=== PATIENT | male | born 1995 | race Hispanic/Latino ===

== ENCOUNTER 2022-11-12 13:34 | Emergency (ER) | payer SELFPAY ==
[2022-11-12] VITALS (8 sets, daily range): BP systolic 127–147; BP diastolic 80–106; PULSE 82–102; RESP 13–20; TEMP 37.2; O2SAT 97–100
--- NOTE | ~2022-11-12 | XR_ITS ---
EXAMINATION: XR chest 2V DATE: 11/12/2022 14:47 INDICATION: Shortness of breath. Lightheadedness. TECHNIQUE: frontal and lateral views of the chest were obtained. COMPARISON: None FINDINGS: Mild infrahilar opacities in the bilateral lower lobes. No pleural effusion or pneumothorax. Heart si ze is normal. Visualized bones and soft tissues are unremarkable. IMPRESSION: 1. Infrahilar opacities in the bilateral lower lobes which could represent atelectasis, pneumonia or mild pulmonary edema. Reviewed, dictated and finalized at location A. IMPRESSION: 1. Infrahilar opacities in the bilateral lower lobes which could represent atel ectasis, pneumonia or mild pulmonary edema.
[2022-11-12] MEDS: SODIUM CHLORIDE 0.9% IV 1,000 ML 999 ML IV CONT (13:53)
--- NOTE | 2022-11-12 14:01 | ECG_ITS ---
Measurements Intervals [place] Rate: 94 P: 62 FL: 149 QRS: 71 QRSD: 86 T: 33 QT: 326 QTc: 408 Interpretive Statements SINUS RHYTHM WITH SINUS ARRHYTHMIA NO PREVIOUS ECG AVAILABLE FOR COMPARISON Electronically Signed On 11-13-2022 8:47:34 CDT by Lizzie Galicia M.D.
--- NOTE | 2022-11-12 14:01 | ED.SOB ---
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 Reports he has been working outside all day today. Reports he starting to feel short of breath and lightheaded. Presents for hydration with IV fluids. Denies chest pain or vomiting. Related Data Allergies Allergy/AdvReac Type Severity Reaction Status Date / Time No Known Allergies Allergy Verified 11/12/22 13:46 Review of Systems Review of Systems: CONSTITUTIONAL: Denies fever EYES: Denies visual changes CARDIOVASCULAR: Denies chest pain, or edema. RESPIRATORY: Reports dyspnea. GASTROINTESTINAL: Denies vomiting All systems reviewed & are unremarkable except as noted in HPI and below PMFSH Past Medical History Medical History (Updated 11/12/22 @ 18:22 by Malena Cloud PA-C) No active medical problems Social History Social History (Updated 11/12/22 @ 17:24 by Malena Cloud PA-C) Smoking status: Current some day smoker Exam Narrative: GENERAL: Well-appearing, well-nourished, and in no acute distress. HEAD: Normocephalic, atraumatic. EYES: PERRLA and EOMI. ENT: Nares clear, no rhinorrhea or epistaxis. Mucous membranes moist. Oropharynx without tonsillar hypertrophy exudate or other lesions. Bilateral TMs pearly resendiz non-bulging NECK: Supple. No adenopathy or masses. CHEST: Clear to auscultation. No respiratory distress. No wheezes rales or rhonchi HEART: Regular rate and rhythm. No murmur heard. Normal peripheral pulses. ABDOMEN: Soft, nontender, nondistended, normal active bowel sounds. EXTREMITIES: Normal range of motion. No edema. SKIN: Warm, dry, no rash. NEURO: No focal deficits. Alert and oriented x3. PSYCH: Normal mood and affect Course Course Emergency Course: Patient was updated on work-up and agrees with plan of care Vital Signs Vital signs: Vital Signs Temperature 99.0 F 11/12/22 13:42 Pulse Rate 102 H 11/12/22 13:42 Respiratory Rate 11/12/22 13:42 Blood Pressure 141/106 H 11/12/22 13:42 Pulse Oximetry 97 11/12/22 13:42 Oxygen Delivery Room Air 11/12/22 13:42 Temperature 99.0 F 11/12/22 13:42 Pulse Rate 83 11/12/22 17:53 Respiratory Rate 18 11/12/22 17:53 Blood Pressure 138/87 11/12/22 17:53 Pulse Oximetry 98 11/12/22 17:53 Oxygen Delivery Room Air 11/12/22 14:03 MDM - SOB/Dyspnea MDM Narrative Medical decision making narrative: Patient presents to the emergency department for possible dehydration after working outside all day today. Tachycardic and hypertensive upon arrival. Heart rate normalized with IV fluid administration. Blood pressure normalized without intervention. CBC without concerning findings. Metabolic panel with mild hypokalemia. Patient given dose of potassium in the ED. UA without evidence of infection. Chest x-ray shows infrahilar opacities in the bilateral lower lobes which could be atelectasis pneumonia or pulmonary edema. BNP is not elevated. He has no lower extremity edema. No fever or cough. Influenza and COVID screens are negative. EKG without concerning changes. Patient was updated on work-up. Reports improvement after IV hydration. He is to follow-up with primary provider. He was given warnings to return to the ER Differential Diagnosis Differential diagnosis: Likely other (Dehydration, electrolyte derangement, rhabdomyolysis) Lab Data Attestation: I reviewed the patient's lab results. 11/12/22 13:50 11/12/22 13:50 Labs: Lab Results 11/12/22 11/12/22 11/12/22 Range/Units 13:50 15:23 16:15 WBC 7.6 (4.5-10.0) K/mm3 RBC 4.68 (4.6-6.20) M/mm3 Hgb 14.3 (14.0-18.0) g/dL Hct 41.3 L (42.0-52
[2022-11-12 14:02] LABS: Basophils Percent Auto 0.5 % (0.2-1.2); Eosinophils Absolute Auto 0.2 K/mm3 (0-0.3); Eosinophils Percent Auto 2.2 % (0-4.4); Hematocrit 41.3 % (42.0-52.0); Hemoglobin 14.3 g/dL (14.0-18.0); Immature Granulocyte Absolute 0.01 K/mm3 (0.00-0.031); Immature Granulocyte Percent A 0.1 % (0-0.5); Lymphocytes Absolute Auto 1.89 K/mm3 (0.9-3.2); Mean Corpuscular HGB Conc 34.6 g/dl (32-36); Mean Corpuscular Hemoglobin 30.6 pg (26-34); Mean Corpuscular Volume 88.2 fl (80-100); Mean Platelet Volume 10.3 fl (7.4-10.4); Monocytes Absolute Auto 0.6 K/mm3 (0.1-0.6); Monocytes Percent Auto 7.3 % (2.6-8.5); Neutrophils Absolute Auto 4.9 K/mm3 (1.3-6.7); Neutrophils Percent Auto 64.9 % (45.5-73.1); Platelet Count Result 296 k/mm3 (150-375); Red Blood Count 4.68 M/mm3 (4.6-6.20); Red Cell Distribution Width 12.2 % (11.5-14.5); White Blood Count 7.6 K/mm3 (4.5-10.0)
[2022-11-12 14:16] LABS: Alanine Aminotransferase 28 U/L (6-50); Albumin Level 4.4 g/dL (3.5-5.1); Alkaline Phosphatase 102 U/L (38-126); Anion Gap 9 mmol/L (8-16); Aspartate Amino Transferase 28 U/L (17-59); Bilirubin,Total 0.5 mg/dL (0.2-1.3); Blood Urea Nitrogen 14 mg/dL (9-20); Calcium 8.8 mg/dL (8.4-10.2); Carbon Dioxide 25 mmol/L (22-30); Chloride 103 mmol/L (98-107); Creatine Kinase 177 U/L (55-170); Estimated CRCL calculation 129 ml/min; Estimated Glomerular Filt Rate > 60; Glucose 149 mg/dL (65-110); Potassium 3.2 mmol/L (3.4-5.0); Sodium 137 mmol/L (137-145)
[2022-11-12] MEDS: POTASSIUM CHLORIDE 20 MEQ ER TABLET 40 MEQ PO (15:17)
[2022-11-12 16:05] LABS: Influenza A QL RT-PCR Negative (Negative); Influenza B QL RT-PCR Negative (Negative); SARS-CoV-2 RNA PCR Negative (Negative)
[2022-11-12 16:10] LABS: NT Pro B Type Natriuretic Pept < 20 pg/mL (19.9-100)
[2022-11-12 16:15] LABS: Hemoglobin A1C 5.4 % (<5.7)
[2022-11-12 16:30] LABS: Appearance Urine Clear (Clear); Bilirubin Urine Negative (Negative); Blood Urine Negative (Negative); Color Urine Yellow (Yellow); Glucose Urine UA Negative (Negative); Ketones Urine Negative (Negative); Leukocyte Esterase Ur Negative LEU/UL (Negative); Nitrate Urine Negative (Negative); Protein Urine Negative (Negative); Specific Grav Ur 1.006 (1.001-1.035); Urobilinogen Urine 0.2 mg/dL (<2.0)
[2022-11-12 16:31] LABS: Add Urine Microscopic? NO
== END 2022-11-12 18:40 | disposition home or self-care (01) ==
PROVIDERS: Emergency Provider Physician Assistant
DX: E86.0 Dehydration (principal); Z20.822 Contact with and (suspected) exposure to COVID-19; F17.200 Nicotine dependence, unspecified, uncomplicated
CPT/HCPCS: 36415; 71046; 80053; 81003; 82550; 83036; 83880; 85025; 87636; 93005; 96360; 96361; 99283; A9270; J7030